=== PATIENT | male | born 1965 | race Caucasian/White ===

== ENCOUNTER 2017-04-20 19:35 | Emergency (ER) | payer MEDICAID ==
[2017-04-20 19:37] VITALS: BMI 31.0
[2017-04-20 19:42] VITALS: BP 122/84; TEMP 98.2; O2SAT 99
[2017-04-20] MEDS ORDERED: Albuterol-Ipratrop 3 mg / 0.5 (3 ml) UD IH STA (19:49)
--- NOTE | 2017-04-20 20:00 | ED PDOC ---
Addendum entered and electronically signed by Jade Arzate PA-C 04/21/17 15:04 : Addendum Addendum: 04/21/17 15:04 Dr. Brown reviewed CXR result, and agreed with treatment . He stated patient is taking ABX, and he was recommended to f/u PMD Original Note: Arrival/HPI <Papo Brown - Last Filed: 04/20/17 21:11> <James Macias - Last Filed: 04/20/17 21:37> - General Chief Complaint: Cough, Cold, Congestion Time Seen by Provider: 04/20/17 19:41 - History of Present Illness Narrative History of Present Illness (Text): 04/20/17 19:52 51 year old male presenting with 2 day history of productive cough and congestion. The cough is bringing up white phlegm. He has been experiencing rhinorrhea with clear discharge. He has been having headaches for two days as well. He has been taking DayQuil but it has not helped. He has taken advil for the headaches, which completely takes the headaches away for a period of time. He attempted to see his primary doctor today but they were away on vacation. Denies fevers, chills, nausea, vomiting, diarrhea, constipation, sob, cp, lightheadedness or dizziness. PMH: HLD Family hx: non Social hx: denies smoking, alcohol or illicit drug use Allergies: NKDA (James Macias) Associated Symptoms (Text): 04/20/17 20:36 Seen and examined with the resident. Our history and physical exam reveals a gentleman with a cough congestion URI shortness of breath and wheezing for 2 days. (Papo Brown) Past Medical History - Provider Review Nursing Documentation Reviewed: Yes - Tetanus Immunization Tetanus Immunization: Unknown - Cardiac Hx Hypertension: Yes - Pulmonary Hx Pneumonia: Yes - Musculoskeletal/Rheumatological Hx Falls: No - Psychiatric Hx Depression: No Hx Emotional Abuse: No Hx Physical Abuse: No Hx Substance Use: No - Past Surgical History Past Surgical History: No Previous - Suicidal Assessment Feels Threatened In Home Enviroment: No <James Macias - Last Filed: 04/20/17 21:37> Family/Social History - Physician Review Nursing Documentation Reviewed: Yes Family/Social History: No Known Family HX Smoking Status: Never Smoked Hx Alcohol Use: No Hx Substance Use: No Hx Substance Use Treatment: No <James Macias - Last Filed: 04/20/17 21:37> Allergies/Home Meds <Papo Brown - Last Filed: 04/20/17 21:11> <James Macias - Last Filed: 04/20/17 21:37> Allergies/Adverse Reactions: Allergies No Known Allergies Allergy (Verified 09/19/12 21:06) Home Medications: Home Meds Medication Instructions Recorded Confirmed Atorvastatin [Lipitor] 20 mg PO DAILY 10/08/12 10/08/12 Aspirin [Aspir 81] 81 mg PO DAILY 02/22/13 02/22/13 Metoprolol Tartrate 25 mg PO BID 02/22/13 02/22/13 Review of Systems - Physician Review All systems were reviewed & negative as marked: Yes - Review of Systems Constitutional: absent: Fatigue, Fevers Eyes: Normal ENT: Rhinorrhea Respiratory: Cough (productive), Sputum (white ). absent: SOB Cardiovascular: absent: Chest Pain, Edema, Syncope Gastrointestinal: absent: Abdominal Pain, Constipation, Diarrhea, Nausea, Vomiting Musculoskeletal: Normal Skin: Normal Neurological: Headache (relieved with advil). absent: Dizziness, Focal Weakness , Speech Changes Endocrine: absent: Diaphoresis Psychiatric: Normal <James Macias - Last Filed: 04/20/17 21:37> Physical Exam Vital Signs Reviewed: Yes Temperature: Afebrile Blood Pressure: Normal Pulse: Tachycardic (HR of 88 on exam) Respiratory Rate: Normal Appearance: Positive for: Well-Appearing, Non-Toxic, Comfortable Pain Distress: None Mental Status: Positive for: Alert and Oriented X 3 - Systems Exam Head: Present: Atraumatic, Normocephalic Extroacular Muscles: Present: EOMI Conjunctiva: Present: Normal Mouth: Present: Moist Mucous Membranes Pharnyx: Present: Normal. No: ERYTHEMA, EXUDATE Nose (External): Present: Atraumatic. No: Abrasion Nose (Internal): Present: Normal Inspection, Moist, Clear Mucous. No: Engorged Neck: Present: Normal Range of Motion. No: Meningeal Signs, Paraspinal Tenderness, Lymphadenopathy Respiratory/Chest: Present: Wheezes (inspiration/exspiration), Other (CTA b/l when coughing). No: Respiratory Distress, Accessory Muscle Use Cardiovascular: Present: Regular Rate and Rhythm, Normal S1, S2 Abdomen: Present: Normal Bowel Sounds. No: Tenderness, Distention, Peritoneal Signs, Guarding Neurological: Present: GCS=15 Skin: Present: Warm, Dry, Normal Color. No: Rashes Psychiatric: Present: Alert, Oriented x 3, Normal Insight, Normal Concentration <James Macias - Last Filed: 04/20/17 21:37> Vital Signs Temp Pulse Resp BP Pulse Ox 04/20/17 19:37 98.2 F 98 H 18 122/84 99 Medical Decision Making - RAD Interpretation Ramp Manager: ED Physician <Papo Brown - Last Filed: 04/20/17 21:11> <James Macias - Last Filed: 04/20/17 21:37> ED Course and Treatment: 04/20/17 20:23 Patient Seen With Resident: In agreement with resident note and more details are present in their notes. Patient was seen and evaluated with resident, came up with plan and treatment together. 04/20/17 20:46 Still wheezing after one treatment. Additional albuterol ordered 04/20/17 21:11 Symptoms further improved after second treatment. (Papo Brown) 04/20/17 20:04 Upper Respiratory Infection - CXR - no acute disease - Duoneb treatment given in ED Dispo: Home. Given prescriptions for Ventolin inhaler, Tessalon Pearls and Amoxicillin. Instructed to follow up with Primary Care Physician in the beginning of next week. (James Macias) - RAD Interpretation Radiology Orders: 04/20/17 19:48 CXR [CHEST TWO VIEWS (PA/LAT)] [RAD] Stat Chest 2 view shows no infiltrate effusion or cardiomegaly (Papo Brown) - Medication Orders Current Medication Orders: Discontinued Medications Albuterol Sulfate (Albuterol 0.5% Inhal Lennie (5 Mg/ Ml) 20 Ml) 2.5 mg IH ONCE STA Stop: 04/20/17 20:46 Last Admin: 04/20/17 20:56 Dose: 0.5 ml Albuterol/Ipratropium (Duoneb 3 Mg/0.5 Mg (3 Ml) Ud) 3 ml IH STAT STA Stop: 04/20/17 19:50 Last Admin: 04/20/17 20:01 Dose: 3 ml Amoxicillin (Amoxil 500 Mg Cap) 500 mg PO STAT STA PRN Reason: Protocol Stop: 04/20/17 21:14 Disposition/Present on Arrival - Present on Arrival Any Indicators Present on Arrival: No History of DVT/PE: No History of Uncontrolled Diabetes: No Urinary Catheter: No History of Decub. Ulcer: No - Disposition Have Diagnosis and Disposition been Completed?: Yes Disposition Time: 21:11 Patient Plan: Discharge <Papo Brown - Last Filed: 04/20/17 21:11> - Present on Arrival History of DVT/PE: No History of Uncontrolled Diabetes: No Urinary Catheter: No History of Decub. Ulcer: No History Surgical Site Infection Following: None <James Macias - Last Filed: 04/20/17 21:37> - Disposition Diagnosis: Asthmatic bronchitis Discharge Instructions (ExitCare): Acute Bronchitis (ED), Bronchospasm (ED), Wheezing (ED) Additional Instructions: Symptomatic treatment. Tylenol or Advil as directed on bottle as needed. Follow- up with your PMD. Follow up in ER as needed. Prescriptions: Amoxicillin [Amoxil 250 mg Cap] 250 mg PO TID #21 cap Benzonatate [Tessalon Perles] 100 mg PO Q8 #30 sgl Albuterol HFA [Ventolin HFA 90 mcg/actuation (8 g)] 2 puff IH [id number] #1 puff Referrals: Demarco Larkin [Primary Care Provider] - Follow up with primary Forms: [employer]iving Eg[employer] [place] (Latvian)
[2017-04-20] MEDS ORDERED: Albuterol 0.5% Inhal Sol (5 mg/ ml) 20 ml IH STA (20:45)
[2017-04-20 21:39] VITALS: PULSE 86; RESP 16
--- NOTE | 2017-04-21 08:19 | RAD ---
HISTORY: productive cough/congestion COMPARISON: Chest x-ray performed 02/22/13 TECHNIQUE: Chest PA and lateral FINDINGS: LUNGS: Patchy opacities at the right and left lower lobes may reflect atelectasis however underlying infiltrate cannot be excluded. Recommend follow-up to complete resolution. No significant pleural effusion identified. No definite pneumothorax . Please note that chest x-ray has limited sensitivity for the detection of pulmonary masses. CARDIOVASCULAR: Heart size appears within normal limits. OSSEOUS STRUCTURES: No acute osseous abnormality identified. VISUALIZED UPPER ABDOMEN: Unremarkable. OTHER FINDINGS: None. IMPRESSION: Patchy opacities at the right and left lower lobes may reflect atelectasis however underlying infiltrate cannot be excluded. Recommend follow-up to complete resolution. Study has been marked for PA review.
== END 2017-04-20 21:39 | disposition home or self-care (01) ==
LOC: ED 19:35
DX: J45.909 Unspecified asthma, uncomplicated (principal)

== ENCOUNTER 2018-10-28 20:54 | Observation (INO) | payer MEDICAID ==
[2018-10-28 21:53] LABS: HEMOGLOBIN 14.9 g/dL (14.0-18.0); MEAN CELL VOLUME 88.2 fl (80.0-105.0); MEAN CORPUSCULAR HEMOGLOBIN 29.8 pg (25.0-35.0); MEAN CORPUSCULAR HGB CONC 33.8 g/dl (31.0-37.0); MEAN PLATELET VOLUME 11.2 fl (7.0-11.0); RED CELL DISTRIBUTION WIDTH 12.9 % (11.5-14.5); WHITE BLOOD COUNT 6.9 10^3/uL (4.5-11.0)
[2018-10-28 22:04] LABS: ALB/GLOB RATIO 1.2 (1.1-1.8); ALBUMIN 4.7 g/dL (3.0-4.8); BLOOD UREA NITROGEN 20 mg/dL (7-21); CALCIUM 9.9 mg/dL (8.4-10.5); GFR NON-AFRICAN AMERICAN > 60
[2018-10-28 22:10] LABS: ALT/SGPT 29 U/L (7-56); AST/SGOT 31 U/L (17-59)
[2018-10-28 22:15] LABS: TROPONIN I < 0.01 ng/mL
[2018-10-28 22:35] LABS: INR 1.14; PARTIAL THROMBOPLASTIN TIME 36.1 Seconds (26.9-38.3); PROTHROMBIN TIME 12.7 SECONDS (9.4-12.5)
--- NOTE | 2018-10-28 22:38 | ED PDOC ---
Arrival/HPI - General Chief Complaint: Dizziness/Lightheaded Time Seen by Provider: 10/28/18 21:00 Historian: Patient - History of Present Illness Narrative History of Present Illness (Text): 10/28/18 22:33 53 year old male, whose past medical history includes hypertension and hyperlipidemia presents to the emergency department complaining of episodes of dizziness and near syncope. Patient states he was told by his PMD that he was pre diabetic. Patient denies any fevers, chills, headache, chest pain, shortness of breath, dyspnea on exertion, cough, abdominal pain, nausea, vomiting, diarrhea, back pain, neck pain, or any other complaint. Time/Duration: Prior to Arrival Symptom Onset: Gradual Symptom Course: Unchanged Activities at Onset: Light Context: Home Past Medical History - Provider Review Nursing Documentation Reviewed: Yes - Infectious Disease Hx of Infectious Diseases: None - Tetanus Immunization Tetanus Immunization: Unknown - Cardiac Hx Hypertension: Yes - Pulmonary Hx Pneumonia: Yes - Musculoskeletal/Rheumatological Hx Falls: No - Psychiatric Hx Depression: No Hx Emotional Abuse: No Hx Physical Abuse: No Hx Substance Use: No - Past Surgical History Past Surgical History: No Previous - Anesthesia Hx Anesthesia: No - Suicidal Assessment Feels Threatened In Home Enviroment: No Family/Social History - Physician Review Nursing Documentation Reviewed: Yes Family/Social History: No Known Family HX Smoking Status: Never Smoked Hx Alcohol Use: No Hx Substance Use: No Hx Substance Use Treatment: No Allergies/Home Meds Allergies/Adverse Reactions: Allergies No Known Allergies Allergy (Verified 10/28/18 21:21) Home Medications: Home Meds Medication Instructions Recorded Confirmed Atorvastatin [Lipitor] 20 mg PO DAILY 10/08/12 10/08/12 Aspirin [Aspir 81] 81 mg PO DAILY 02/22/13 02/22/13 Metoprolol Tartrate 25 mg PO BID 02/22/13 02/22/13 Review of Systems - Physician Review All systems were reviewed & negative as marked: Yes - Review of Systems Constitutional: absent: Fevers Respiratory: absent: SOB, Cough Cardiovascular: absent: Chest Pain Gastrointestinal: absent: Abdominal Pain, Diarrhea, Nausea, Vomiting Musculoskeletal: absent: Back Pain, Neck Pain Neurological: Dizziness. absent: Headache Physical Exam Vital Signs Reviewed: Yes Vital Signs Temp Pulse Resp BP Pulse Ox 10/28/18 21:22 98.2 F 72 18 138/89 98 Temperature: Afebrile Blood Pressure: Normal Pulse: Regular Respiratory Rate: Normal Appearance: Positive for: Well-Appearing, Non-Toxic, Comfortable Pain Distress: None Mental Status: Positive for: Alert and Oriented X 3 - Systems Exam Head: Present: Atraumatic, Normocephalic Pupils: Present: PERRL Extroacular Muscles: Present: EOMI Conjunctiva: Present: Normal Mouth: Present: Moist Mucous Membranes Neck: Present: Normal Range of Motion Respiratory/Chest: Present: Clear to Auscultation, Good Air Exchange. No: Respiratory Distress, Accessory Muscle Use Cardiovascular: Present: Regular Rate and Rhythm, Normal S1, S2. No: Murmurs Abdomen: No: Tenderness, Distention, Peritoneal Signs Back: Present: Normal Inspection Upper Extremity: Present: Normal Inspection. No: Cyanosis, Edema Lower Extremity: Present: Normal Inspection. No: Edema Neurological: Present: GCS=15, CN II-XII Intact, Speech Normal Skin: Present: Warm, Dry, Normal Color. No: Rashes Psychiatric: Present: Alert, Oriented x 3, Normal Insight, Normal Concentration Medical Decision Making ED Course and Treatment: 10/28/18 22:39 Impression: 53 year old male who presents to the emergency department complaining of dizziness and near syncope. Plan: -- Head CT w/o contrast -- EKG -- Labs -- Chest X-ray -- Reassess and disposition Prior Visits: Notes and results from previous visits were reviewed. Progress Notes: 10/28/18 22:41 EKG reviewed by m, shows: NSR 69 bpm, with LVH non specific ST/T wave changes 10/28/18 23:[address] w/o contrast reviewed by radiologist, shows: IMPRESSION: 1. There is mucosal thickening of some right ethmoid air cells. 2. No CT evidence for acute intracranial abnormality. Chest X-ray IMPRESSION: No acute processes. 10/28/18 23:47 Case discussed with medical sonographer and house doctor, Dr. Otero, accepted in hospitalist service. - Lab Interpretations Lab Results: Troponin I < 0.01 ng/mL 10/28/18 21:44 Total Bilirubin 0.4 mg/dL (0.2-1.3) 10/28/18 21:44 AST 31 U/L (17-59) 10/28/18 21:44 ALT 29 U/L (7-56) 10/28/18 21:44 Alkaline Phosphatase 63 U/L (38-126) 10/28/18 21:44 Total Protein 8.5 g/dL (5.8-8.3) H 10/28/18 21:44 Albumin 4.7 g/dL (3.0-4.8) 10/28/18 21:44 Globulin 3.8 gm/dL 10/28/18 21:44 Albumin/Globulin Ratio 1.2 (1.1-1.8) 10/28/18 21:44 I have reviewed the lab results: Yes - RAD Interpretation Radiology Orders: 10/28/18 21:23 HEAD W/O CONTRAST [CT] Stat 10/28/18 21:24 CHEST PORTABLE [RAD] Stat Health Informatics Specialist: Radiologist - EKG Interpretation Interpreted by ED Physician: Yes Type: 12 lead EKG - Scribe Statement The provider has reviewed the documentation as recorded by the Talaibkeesha Chapin Provider Scribe Attestation: All medical record entries made by the Scribe were at my direction and personally dictated by me. I have reviewed the chart and agree that the record accurately reflects my personal performance of the history, physical exam, medical decision making, and the department course for this patient. I have also personally directed, reviewed, and agree with the discharge instructions and disposition. Disposition/Present on Arrival - Present on Arrival Any Indicators Present on Arrival: No History of DVT/PE: No History of Uncontrolled Diabetes: No Urinary Catheter: No History of Decub. Ulcer: No History Surgical Site Infection Following: None - Disposition Have Diagnosis and Disposition been Completed?: Yes Diagnosis: Near syncope Disposition: HOSPITALIZED Disposition Time: 23:44 Patient Problems: Current Active Problems Problem Status Onset Near syncope Acute Condition: STABLE Forms: [employer] (Serbian)
--- NOTE | 2018-10-29 01:08 | CP.PCM.HP ---
<Kareem Tariq - Last Filed: 10/29/18 01:29> History of Present Illness - History of Present Illness History of Present Illness: Kareem Tariq DO, PGY-1 Hospitalist Admission History and Physical for Dr. Otero CC: dizziness, near-syncope HPI: Patient is a 53 year old male with PMH of HTN, HLD, GERD, and unspecified arrhythmia (s/p ablation, likely AFib) who presented to ED with complaint of episodes of periodic dizziness. He states he has had these episodes for the past 3 days. He states the episodes last for about 10 minutes and sitting or lying down helps improve the dizziness. He states it feels as if the room is spinning around during these episodes. He has no additional complaints and denies fever/chills, CP, SOB, palpitations, syncope, peripheral numbness/tingling, MARTINEZ, changes in vision, or new urinary complaints. PMD: Dr. Michel [place] in [place] Past Medical History: HTN, HLD, GERD, and unspecified arrhythmia (s/p ablation, likely AFib) Past Surgical History: Cardiac ablation for arrhythmia, likely AFib Allergies: NKA Home medications: Lopressor 25 mg daily, Lipitor 20 mg daily, ASA 81 mg daily, Ventolin PRN q6h Family History: father had CAD Social History: denies current or prior tobacco, alcohol, or illicit drug use Pharmacy: [id number] Present on Admission - Present on Admission Any Indicators Present on Admission: No History of DVT/PE: No History of Uncontrolled Diabetes: No Urinary Catheter: No Decubitus Ulcer Present: No Review of Systems - Constitutional Constitutional: absent: Chills, Fever - EENT Eyes: absent: Blurred Vision, Change in Vision - Cardiovascular Cardiovascular: absent: Chest Pain, Chest Pain at Rest, Dyspnea, Dyspnea on Exertion, Orthopnea, Palpitations, Paroxysmal Nocturnal Dyspnea - Respiratory Respiratory: absent: Cough, Dyspnea - Gastrointestinal Gastrointestinal: absent: Abdominal Pain, Nausea, Vomiting - Genitourinary Genitourinary: absent: Change in Urinary Stream, Difficulty Urinating - Musculoskeletal Musculoskeletal: absent: Numbness, Tingling - Neurological Neurological: Disequilibrium, Dizziness. absent: Numbness, Syncope, Tremor, Weakness Past Patient History - Infectious Disease Hx of Infectious Diseases: None - Tetanus Immunizations Tetanus Immunization: Unknown - Past Social History Smoking Status: Never Smoked - CARDIAC Hx Hypertension: Yes - PULMONARY Hx Pneumonia: Yes - MUSCULOSKELETAL/RHEUMATOLOGICAL Hx Falls: No - PSYCHIATRIC Hx Depression: No Hx Emotional Abuse: No Hx Physical Abuse: No Hx Substance Use: No - ANESTHESIA Hx Anesthesia: No Meds Allergies/Adverse Reactions: Allergies Allergy/AdvReac Type Severity Reaction Status Date / Time No Known Allergies Allergy Verified 10/28/18 21:21 Physical Exam - Constitutional Appears: Non-toxic, No Acute Distress - Head Exam Head Exam: ATRAUMATIC, NORMOCEPHALIC - Eye Exam Eye Exam: EOMI, PERRL - ENT Exam ENT Exam: Mucous Membranes Moist - Neck Exam Neck exam: Positive for: Full Rom, Normal Inspection - Respiratory Exam Respiratory Exam: Clear to Auscultation Bilateral, NORMAL BREATHING PATTERN. absent: Accessory Muscle Use, Rales, Rhonchi, Wheezes, Respiratory Distress - Cardiovascular Exam Cardiovascular Exam: REGULAR RHYTHM, RRR, +S1, +S2. absent: Diastolic murmur, Gallop, Rubs, Systolic Murmur - GI/Abdominal Exam GI & Abdominal Exam: Normal Bowel Sounds, Soft. absent: Guarding, Rebound, Tenderness - Extremities Exam Extremities exam: Positive for: full ROM, normal inspection. Negative for: pedal edema - Back Exam Back exam: NORMAL INSPECTION - Neurological Exam Neurological exam: Alert, CN II-XII Intact, Normal Gait, Oriented x3 Additional comments: no nystagmus - Psychiatric Exam Psychiatric exam: Normal Affect, Normal Mood - Skin Skin Exam: Dry, Intact, Warm Results - Vital Signs Recent Vital Signs: Last Vital Signs Temp 98.1 F 10/29/18 00:37 Pulse 77 10/29/18 00:37 Resp 18 10/29/18 00:37 BP 130/78 10/29/18 00:37 Pulse Ox 98 10/29/18 00:37 - Labs Result Diagrams: 10/28/18 21:44 10/28/18 21:44 Labs: Laboratory Results - last 24 hr 10/28/18 10/28/18 10/28/18 21:44 21:44 22:20 WBC 6.9 RBC 5.00 Hgb 14.9 Hct 44.1 MCV 88.2 MCH 29.8 MCHC 33.8 RDW 12.9 Plt Count 210 MPV 11.2 H PT 12.7 H INR 1.14 APTT 36.1 Sodium 138 Potassium 4.2 Chloride 104 Carbon Dioxide 23 Anion Gap 15 BUN 20 Creatinine 0.8 Est GFR ( Amer) > 60 Est GFR (Non-Af Amer) > 60 Random Glucose 94 Calcium 9.9 Total Bilirubin 0.4 AST 31 ALT 29 Alkaline Phosphatase 63 Lactate Dehydrogenase 506 Total Creatine Kinase 227 Troponin I < 0.01 Total Protein 8.5 H Albumin 4.7 Globulin 3.8 Albumin/Globulin Ratio 1.2 Assessment & Plan - Assessment and Plan (Free Text) Assessment: 53 yo M with PMH of HTN, HLD, GERD, and unspecified arrhythmia (s/p ablation, likely AFib) presented to ED with complaints of intermittent episodes of dizziness admitted for pre-syncope w/u. Plan: Dizziness/Pre-syncope May be 2/[address] vasovag[address] vs [address] head showed mucosal thickening of some R ethmoid air cells B/l carotid US, orthostatic VS, TTE ordered Cardiology, neurology consults placed, all recs appreciated HTN Continue home lopressor with holding parameters HLD Continue home lipitor GERD Continue home protonix DVT/GI PPX: SCD/home protonix Full Code HHD Monitor on remote telemetry Patient seen, examined with, and plan discussed with my attending Dr. Shanna Tariq D.O. IM Resident PGY-1 <Raul Otero - Last Filed: 10/29/18 06:08> Results - Vital Signs Recent Vital Signs: Last Vital Signs Temp 98 F 10/29/18 00:46 Pulse 76 10/29/18 02:00 Resp 18 10/29/18 00:46 BP 135/89 10/29/18 00:46 Pulse Ox 96 10/29/18 00:46 - Labs Result Diagrams: 10/28/18 21:44 10/28/18 21:44 Labs: Laboratory Results - last 24 hr 10/28/18 10/28/18 10/28/18 21:44 21:44 22:20 WBC 6.9 RBC 5.00 Hgb 14.9 Hct 44.1 MCV 88.2 MCH 29.8 MCHC 33.8 RDW 12.9 Plt Count 210 MPV 11.2 H PT 12.7 H INR 1.14 APTT 36.1 Sodium 138 Potassium 4.2 Chloride 104 Carbon Dioxide 23 Anion Gap 15 BUN 20 Creatinine 0.8 Est GFR ( Amer) > 60 Est GFR (Non-Af Amer) > 60 Random Glucose 94 Calcium 9.9 Total Bilirubin 0.4 AST 31 ALT 29 Alkaline Phosphatase 63 Lactate Dehydrogenase 506 Total Creatine Kinase 227 Troponin I < 0.01 Total Protein 8.5 H Albumin 4.7 Globulin 3.8 Albumin/Globulin Ratio 1.2 Attending/Attestation - Attestation I have personally seen and examined this patient.: Yes I have fully participated in the care of the patient.: Yes I have reviewed all pertinent clinical information: Yes Notes (Text): 10/29/18 06:08 Patient was seen when he was in bed # [id number]. Medical record was reviewed. Agree with history , physical examination, assessment and plan.
[2018-10-29 01:17] VITALS: BMI 27.3
[2018-10-29 06:14] VITALS: O2SAT 97
[2018-10-29 07:18] LABS: BASO # 0.02 K/mm3 (0.0-2.0); BASO % 0.3 % (0.0-3.0); EOS # 0.1 (0.0-0.7); EOS % 2.4 % (1.5-5.0); HEMOGLOBIN 14.7 g/dL (14.0-18.0); LYMPH # 3.2 (1.2-3.4); LYMPH % 54.2 % (22.0-35.0); MEAN CELL VOLUME 88.8 fl (80.0-105.0); MEAN CORPUSCULAR HEMOGLOBIN 29.4 pg (25.0-35.0); MEAN CORPUSCULAR HGB CONC 33.1 g/dl (31.0-37.0); MEAN PLATELET VOLUME 11.6 fl (7.0-11.0); MONO # 0.5 (0.1-0.6); MONO % 7.9 % (1.0-6.0); WHITE BLOOD COUNT 5.9 10^3/uL (4.5-11.0)
[2018-10-29 07:33] LABS: ALB/GLOB RATIO 1.3 (1.1-1.8); ALBUMIN 4.3 g/dL (3.0-4.8); ALT/SGPT 26 U/L (7-56); AST/SGOT 31 U/L (17-59); BLOOD UREA NITROGEN 19 mg/dL (7-21); CALCIUM 9.6 mg/dL (8.4-10.5); GFR NON-AFRICAN AMERICAN > 60; HDL CHOLESTEROL 28 mg/dL (29-60)
[2018-10-29 07:43] LABS: LDL CHOLESTEROL 86 mg/dL (0-129)
--- NOTE | 2018-10-29 08:36 | CT ---
Date of service: 10/28/2018 PROCEDURE: CT HEAD WITHOUT CONTRAST. HISTORY: dizzy/near syncope COMPARISON: None available. TECHNIQUE: Axial computed tomography images were obtained through the head/brain without intravenous contrast. Radiation dose: Total exam DLP = 1217.56 mGy-cm. This CT exam was performed using one or more of the following dose reduction techniques: Automated exposure control, adjustment of the mA and/or kV according to patient size, and/or use of iterative reconstruction technique. FINDINGS: HEMORRHAGE: No intracranial hemorrhage. BRAIN: Shin-white matter differentiation is preserved. There is no mass, mass effect or abnormal extra-axial fluid collection. There is no territorial infarction. The midline sagittal structures are normal. VENTRICLES: There is mild age advanced global parenchymal volume loss and proportionate enlargement of the ventricles and cortical sulci. CALVARIUM: There is no calvarial fracture or extracranial soft tissue swelling. PARANASAL SINUSES: There is moderate scattered mucosal thickening in the right ethmoid air cells. The remaining included paranasal sinuses are predominantly clear. MASTOID AIR CELLS: Predominantly clear. OTHER FINDINGS: None. IMPRESSION: No acute intracranial abnormality. A preliminary report was provided by [facility].
--- NOTE | 2018-10-29 09:47 | RAD ---
Date of service: 10/28/2018 HISTORY: Dizziness COMPARISON: 04/20/2017. FINDINGS: LUNGS: The lungs are well inflated and clear. PLEURA: No pleural effusions or pneumothorax. CARDIOVASCULAR: The heart is normal in size. No aortic atherosclerotic calcifications present. OSSEOUS STRUCTURES: Within normal limits for the patient's age. VISUALIZED UPPER ABDOMEN: Normal. OTHER FINDINGS: None. IMPRESSION: No active pulmonary disease.
[2018-10-29] MEDS ORDERED: Cholecalciferol 1,000 INTLU TAB PO SCH (10:00)
[2018-10-29] MEDS ORDERED: diltiaZEM 120 mg/24 Hours CD Cap PO SCH (10:00)
--- NOTE | 2018-10-29 10:03 | CON ---
DATE OF CONSULTATION: 10/29/2018 REQUESTING PHYSICIAN: Dr. Modi. REASON FOR CONSULTATION: Near syncope. HISTORY: This is a 53-year-old man with a history of hypertension, hyperlipidemia, and glucose tolerance, who had a near syncopal event yesterday. He states that he had multiple episodes of dizziness throughout the day and felt that he were to lose consciousness. He had no inderjit, inderjit syncope. This has happened several times in the past, but he has no evidence of syncope. He is unaware of any palpitations at that time. Denied any chest pain or dyspnea. He feels that his symptoms may have been precipitated by eating tainted food. PAST MEDICAL HISTORY: His past history is notable for the problems mentioned above. He states that he underwent a catheter ablation therapy at [facility] sometime in the past, the full details of this were unclear. MEDICATIONS: His medications at home include aspirin, metoprolol 25 mg b.i.d., and Lipitor 20 mg daily. ALLERGIES: NONE. SOCIAL HISTORY: Does not smoke or drink. He works as a citrus fruit packer. FAMILY HISTORY: Unremarkable for premature heart disease. REVIEW OF SYSTEMS: Ten-point review of systems was unremarkable. PHYSICAL EXAMINATION: GENERAL: He is a middle-aged man, appears comfortable at the present time. VITAL SIGNS: Blood pressure is 120/76 with a pulse of 80 and sinus, respirations are 16. He is afebrile. HEENT: Normocephalic, atraumatic. NECK: Supple. No JVD noted. CHEST: Few scattered rhonchi heard. HEART: PMI normal position. No pathological murmurs or gallops are noted. ABDOMEN: Soft and nontender, with normoactive bowel sounds. EXTREMITIES: No edema. DIAGNOSTIC DATA: White count 6.9, hemoglobin and hematocrit of 14.9 and 44.1, with a platelet count of 210,000. PT/PTT normal. Potassium 4.2, BUN and creatinine are 20 and 0.8. Initial troponin is negative. Chest x-ray reveals normal cardiac silhouette with clear lung youngblood. Electrocardiogram reveals sinus rhythm with nonspecific ST-T abnormalities. IMPRESSION: 1. Near syncope, possible vasovagal event. No clear cardiac dysfunction noted at the present time. No documented dysrhythmias thus far, although he does have a history of prior ablation therapy, the exact details of which is unclear. 2. History of hypertension and hyperlipidemia. 3. Rest of problems as noted. RECOMMENDATIONS: Telemetry observation should continue for today. An echocardiogram is pending. If he has recurrent symptoms, repeat orthostatic vital signs can be obtained. Initial evaluation was unremarkable. If he has recurrent episodes, a 30-day event monitor or an implantable loop recorder can be planned given his prior history of dysrhythmias. Followup with his primary tobacco curer upon discharge would be appropriate. Thank you for this consultation. We will be happy to follow up through his hospital course as needed. Calvin Winters MD MTDD
[2018-10-29 12:01] VITALS: BP 126/81; RESP 18; TEMP 97.9
--- NOTE | 2018-10-29 15:08 | CP.PCM.CON ---
History of Present Illness - History of Present Illness History of Present Illness: Masoud Reeves PGY2 Neurology Consult Note for Dr. Welsh 53 year old male with PMH of HTN, HLD, GERD, and unspecified arrhythmia (s/p ablation, likely AFib) who presented with complaint of episodes of periodic lightheadedness and feeling weak. Patient states he has been eating less since his doctor told him he may have diabetes. He states when he feels lightheaded he drinks some sugar and feels better. He states this has happened twice in the last week. He denies any LOC or any falls. He has no additional complaints and denies fever/chills, CP, SOB, palpitations, syncope, peripheral numbness/tingling, MARTINEZ, changes in vision, or new urinary complaints. PMD: Dr. Michel [place] in [place] Past Medical History: HTN, HLD, GERD, and unspecified arrhythmia (s/p ablation, likely AFib) Past Surgical History: Cardiac ablation for arrhythmia, likely AFib Allergies: NKA Home medications: Lopressor 25 mg daily, Lipitor 20 mg daily, ASA 81 mg daily, Ventolin PRN q6h Family History: father had CAD Social History: denies current or prior tobacco, alcohol, or illicit drug use Pharmacy: [facility] Review of Systems - EENT Eyes: absent: Blind Spots, Blurred Vision, Change in Vision - Cardiovascular Cardiovascular: absent: Chest Pain, Dyspnea - Respiratory Respiratory: absent: Dyspnea - Gastrointestinal Gastrointestinal: absent: Abdominal Pain, Nausea, Vomiting - Musculoskeletal Musculoskeletal: absent: Numbness, Tingling - Neurological Neurological: Weakness. absent: Confusion, Disequilibrium, Focal Weakness, Headaches, Paresthesias, Vertigo Past Patient History - Infectious Disease Hx of Infectious Diseases: None - Tetanus Immunizations Tetanus Immunization: Unknown - Past Social History Smoking Status: Never Smoked - CARDIAC Hx Hypertension: Yes - PULMONARY Hx Pneumonia: Yes - NEUROLOGICAL Hx Neurological Disorder: Yes Hx Dizziness: Yes - HEENT Hx HEENT Problems: No - RENAL Hx Chronic Kidney Disease: No - ENDOCRINE/METABOLIC Hx Endocrine Disorders: Yes Hx Diabetes Mellitus Type 2: Yes (pre- DM) - HEMATOLOGICAL/ONCOLOGICAL Hx Blood Disorders: No - INTEGUMENTARY Hx Dermatological Problems: No - MUSCULOSKELETAL/RHEUMATOLOGICAL Hx Falls: No - GASTROINTESTINAL Hx Gastrointestinal Disorders: No - GENITOURINARY/GYNECOLOGICAL Hx Genitourinary Disorders: No - PSYCHIATRIC Hx Depression: No Hx Emotional Abuse: No Hx Physical Abuse: No Hx Substance Use: No - SURGICAL HISTORY Hx Surgeries: Yes (ablation) - ANESTHESIA Hx Anesthesia: No Meds Allergies/Adverse Reactions: Allergies Allergy/AdvReac Type Severity Reaction Status Date / Time No Known Allergies Allergy Verified 10/28/18 21:21 - Medications Medications: Current Medications Aspirin (Ecotrin) 81 mg PO DAILY [facility] Last Admin: 10/29/18 10:44 Dose: 81 mg Atorvastatin Calcium (Lipitor) 20 mg PO DAILY [facility] Last Admin: 10/29/18 10:45 Dose: 20 mg Cholecalciferol (Vitamin D) 1,000 intlu PO DAILY [facility] Last Admin: 10/29/18 10:45 Dose: 1,000 intlu Metoprolol Tartrate (Lopressor) 25 mg PO DAILY [facility] Last Admin: 10/29/18 10:45 Dose: Not Given Pantoprazole Sodium (Protonix Ec Tab) 40 mg PO [facility] Physical Exam - Constitutional Appears: Non-toxic, No Acute Distress - Head Exam Head Exam: ATRAUMATIC, NORMAL INSPECTION, NORMOCEPHALIC - Eye Exam Eye Exam: EOMI, Normal appearance - ENT Exam ENT Exam: Mucous Membranes Moist - Neck Exam Neck exam: Positive for: Normal Inspection - Respiratory Exam Respiratory Exam: Clear to Auscultation Bilateral, NORMAL BREATHING PATTERN - Cardiovascular Exam Cardiovascular Exam: REGULAR RHYTHM, +S1, +S2 - GI/Abdominal Exam GI & Abdominal Exam: Normal Bowel Sounds, Soft - Extremities Exam Extremities exam: Positive for: pedal pulses present. Negative for: pedal edema, tenderness - Neurological Exam Neurological exam: Alert, CN II-XII Intact, Normal Gait, Oriented x3, Reflexes Normal Additional comments: No ataxia, speech clear, no gait instability, cerebellar function in tact, 5/5 Upper and lower extremity B/lL with sensation in tact Results - Vital Signs Recent Vital Signs: Last Vital Signs Temp 97.9 F 10/29/18 12:00 Pulse 74 10/29/18 12:00 Resp 18 10/29/18 12:00 BP 126/81 10/29/18 12:00 Pulse Ox 97 10/29/18 06:00 - Labs Result Diagrams: 10/29/18 06:30 10/29/18 06:30 Labs: Laboratory Results - last 24 hr 10/28/18 10/28/18 10/28/18 21:44 21:44 22:20 WBC 6.9 RBC 5.00 Hgb 14.9 Hct 44.1 MCV 88.2 MCH 29.8 MCHC 33.8 RDW 12.9 Plt Count 210 MPV 11.2 H Neut % (Auto) Lymph % (Auto) [place] % (Auto) Eos % (Auto) Baso % (Auto) Lymph # (Auto) [place] # (Auto) Eos # (Auto) Baso # (Auto) Absolute Neuts (auto) PT 12.7 H INR 1.14 APTT 36.1 Sodium 138 Potassium 4.2 Chloride 104 Carbon Dioxide 23 Anion Gap 15 BUN 20 Creatinine 0.8 Est GFR ( Amer) > 60 Est GFR (Non-Af Amer) > 60 Random Glucose 94 Hemoglobin A1c Calcium 9.9 Phosphorus Magnesium Total Bilirubin 0.4 AST 31 ALT 29 Alkaline Phosphatase 63 Lactate Dehydrogenase 506 Total Creatine Kinase 227 Troponin I < 0.01 Total Protein 8.5 H Albumin 4.7 Globulin 3.8 Albumin/Globulin Ratio 1.2 Triglycerides Cholesterol LDL Cholesterol Direct HDL Cholesterol TSH 3rd Generation 10/29/18 10/29/18 10/29/18 06:30 06:30 06:30 WBC 5.9 RBC 5.00 Hgb 14.7 Hct 44.4 MCV 88.8 MCH 29.4 MCHC 33.1 RDW 13.0 Plt Count 183 MPV 11.6 H Neut % (Auto) 35.2 L Lymph % (Auto) 54.2 H [place] % (Auto) 7.9 H Eos % (Auto) 2.4 Baso % (Auto) 0.3 Lymph # (Auto) 3.2 [place] # (Auto) 0.5 Eos # (Auto) 0.1 Baso # (Auto) 0.02 Absolute Neuts (auto) 2.08 PT INR APTT Sodium 141 Potassium 3.6 Chloride 105 Carbon Dioxide 26 Anion Gap 13 BUN 19 Creatinine 0.9 Est GFR ( Amer) > 60 Est GFR (Non-Af Amer) > 60 Random Glucose 113 H Hemoglobin A1c 6.1 Calcium 9.6 Phosphorus 3.5 Magnesium 2.2 Total Bilirubin 0.4 AST 31 ALT 26 Alkaline Phosphatase 61 Lactate Dehydrogenase Total Creatine Kinase Troponin I Total Protein 7.6 Albumin 4.3 Globulin 3.4 Albumin/Globulin Ratio 1.3 Triglycerides 177 H Cholesterol 146 LDL Cholesterol Direct 86 HDL Cholesterol 28 L TSH 3rd Generation 10/29/18 10/29/18 06:30 08:00 WBC RBC Hgb Hct MCV MCH MCHC RDW Plt Count MPV Neut % (Auto) Lymph % (Auto) [place] % (Auto) Eos % (Auto) Baso % (Auto) Lymph # (Auto) [place] # (Auto) Eos # (Auto) Baso # (Auto) Absolute Neuts (auto) PT INR APTT Sodium Potassium Chloride Carbon Dioxide Anion Gap BUN Creatinine Est GFR ( Amer) Est GFR (Non-Af Amer) Random Glucose Hemoglobin A1c Calcium Phosphorus Magnesium Total Bilirubin AST ALT Alkaline Phosphatase Lactate Dehydrogenase Total Creatine Kinase Troponin I < 0.01 Total Protein Albumin Globulin Albumin/Globulin Ratio Triglycerides Cholesterol LDL Cholesterol Direct HDL Cholesterol TSH 3rd Generation 1.05 Assessment & Plan - Assessment and Plan (Free Text) Assessment: 53 yo M with PMH of HTN, HLD, GERD, and unspecified arrhythmia (s/p ablation, likely AFib) presented to ED with complaints of weakness and lightheadedness. Plan: Lightheadedness/ Weakness -resolved, no focal weakness, ataxia -CT head showed mucosal thickening of some R ethmoid air cells -orthostatics normal -echo pending read -cardiology following -carotid duplex pending read Will sign off at this point, thanks
[2018-10-29 15:46] VITALS: PULSE 95
--- NOTE | 2018-10-29 15:58 | CP.PCM.DIS ---
<Collins Roland - Last Filed: 10/29/18 15:53> Provider - Provider Date of Admission: 10/28/18 23:42 Attending physician: Sofie Sampson DO Primary care physician: ADRIANA PRIMARY CARE PROVIDER Consults: 10/29/18 00:27 Cardiology Consult Routine Comment: Consulting Provider: Calvin Winters Consulting Physician: Calvin Winters Reason for Consult: near-syncope Neurology Consult Routine Comment: Consulting Provider: Umu Rodriguez Consulting Physician: Umu Rodriguez Reason for Consult: near-syncope Time Spent in preparation of Discharge (in minutes): 35 Hospital Course - Lab Results Lab Results: Most Recent Lab Values WBC 5.9 10^3/uL (4.5-11.0) 10/29/18 06:30 RBC 5.00 10^6/uL (3.5-6.1) 10/29/18 06:30 Hgb 14.7 g/dL (14.0-18.0) 10/29/18 06:30 Hct 44.4 % (42.0-52.0) 10/29/18 06:30 MCV 88.8 fl (80.0-105.0) 10/29/18 06:30 MCH 29.4 pg (25.0-35.0) 10/29/18 06:30 MCHC 33.1 g/dl (31.0-37.0) 10/29/18 06:30 RDW 13.0 % (11.5-14.5) 10/29/18 06:30 Plt Count 183 10^3/uL (120.0-450.0) 10/29/18 06:30 MPV 11.6 fl (7.0-11.0) H 10/29/18 06:30 Neut % (Auto) 35.2 % (50.0-68.0) L 10/29/18 06:30 Lymph % (Auto) 54.2 % (22.0-35.0) H 10/29/18 06:30 [place] % (Auto) 7.9 % (1.0-6.0) H 10/29/18 06:30 Eos % (Auto) 2.4 % (1.5-5.0) 10/29/18 06:30 Baso % (Auto) 0.3 % (0.0-3.0) 10/29/18 06:30 Lymph # (Auto) 3.2 (1.2-3.4) 10/29/18 06:30 [place] # (Auto) 0.5 (0.1-0.6) 10/29/18 06:30 Eos # (Auto) 0.1 (0.0-0.7) 10/29/18 06:30 Baso # (Auto) 0.02 K/mm3 (0.0-2.0) 10/29/18 06:30 Absolute Neuts (auto) 2.08 (1.4-6.5) 10/29/18 06:30 PT 12.7 SECONDS (9.4-12.5) H 10/28/18 22:20 INR 1.14 10/28/18 22:20 APTT 36.1 Seconds (26.9-38.3) 10/28/18 22:20 Sodium 141 mmol/L (132-148) 10/29/18 06:30 Potassium 3.6 mmol/L (3.6-5.0) 10/29/18 06:30 Chloride 105 mmol/L (98-107) 10/29/18 06:30 Carbon Dioxide 26 mmol/L (21-33) 10/29/18 06:30 Anion Gap 13 (10-20) 10/29/18 06:30 BUN 19 mg/dL (7-21) 10/29/18 06:30 Creatinine 0.9 mg/dl (0.8-1.5) 10/29/18 06:30 Est GFR ( Amer) > 60 10/29/18 06:30 Est GFR (Non-Af Amer) > 60 10/29/18 06:30 Random Glucose 113 mg/dL (70-110) H 10/29/18 06:30 Hemoglobin A1c 6.1 % (4.2-6.5) 10/29/18 06:30 Calcium 9.6 mg/dL (8.4-10.5) 10/29/18 06:30 Phosphorus 3.5 mg/dL (2.5-4.5) 10/29/18 06:30 Magnesium 2.2 mg/dL (1.7-2.2) 10/29/18 06:30 Total Bilirubin 0.4 mg/dL (0.2-1.3) 10/29/18 06:30 AST 31 U/L (17-59) 10/29/18 06:30 ALT 26 U/L (7-56) 10/29/18 06:30 Alkaline Phosphatase 61 U/L (38-126) 10/29/18 06:30 Lactate Dehydrogenase 506 U/L (333-699) 10/28/18 21:44 Total Creatine Kinase 227 U/L (35-230) 10/28/18 21:44 Troponin I < 0.01 ng/mL 10/29/18 08:00 Total Protein 7.6 g/dL (5.8-8.3) 10/29/18 06:30 Albumin 4.3 g/dL (3.0-4.8) 10/29/18 06:30 Globulin 3.4 gm/dL 10/29/18 06:30 Albumin/Globulin Ratio 1.3 (1.1-1.8) 10/29/18 06:30 Triglycerides 177 mg/dL (35-160) H 10/29/18 06:30 Cholesterol 146 mg/dL (130-200) 10/29/18 06:30 LDL Cholesterol Direct 86 mg/dL (0-129) 10/29/18 06:30 HDL Cholesterol 28 mg/dL (29-60) L 10/29/18 06:30 TSH 3rd Generation 1.05 mIU/mL (0.46-4.68) 10/29/18 06:30 - Hospital Course Hospital Course: Upon admission, 53 year old male with PMH of HTN, HLD, GERD, and unspecified arrhythmia (s/p ablation, likely AFib) who presented to ED with complaint of episodes of periodic dizziness. He states he has had these episodes for the past 3 days. He states the episodes last for about 10 minutes and sitting or lying d own helps improve the dizziness. He states it feels as if the room is spinning around during these episodes. He has no additional complaints and denies fever/chills, CP, SOB, palpitations, syncope, peripheral numbness/tingling, MARTINEZ, changes in vision, or new urinary complaints. During hospital course, vitals were stable, orthostatics were unremarkable and electrolytes were within normal range. Patient had carotid ultrasound done and echo performed with results pending. Cardiology and neurology were consulted. Patient did not have any repeat episodes of dizziness or presyncope and was asymptomatic throughout hospital course. His home medications were resumed including aspirin, lipitor, lopressor 25mg and started on protonix for GI prophylaxis. Patient states he has work obligations tomorrow and has to leave hospital today. Risks of leaving AMA were explained to patient including improved prognosis and overall symptoms if patient stayed and worsening of known/unknown symptoms, permanent disability and possible if patient left. Patient verbalized understanding of leaving AMA and wished to leave. Patient has good mental capacity and denied homocidal/suicidal ideations. Patient instructed follow up with PMD as soon as possible. Discharge Exam - Additional Findings Additional findings: - Constitutional Appears: Non-toxic, No Acute Distress - Head Exam Head Exam: ATRAUMATIC, NORMOCEPHALIC - Eye Exam Eye Exam: EOMI, PERRL - ENT Exam ENT Exam: Mucous Membranes Moist - Neck Exam Neck exam: Positive for: Full Rom, Normal Inspection - Respiratory Exam Respiratory Exam: Clear to Auscultation Bilateral, NORMAL BREATHING PATTERN. absent: Accessory Muscle Use, Rales, Rhonchi, Wheezes, Respiratory Distress - Cardiovascular Exam Cardiovascular Exam: REGULAR RHYTHM +S1, +S2. absent: Diastolic murmur, Gallop, Rubs, Systolic Murmur - GI/Abdominal Exam GI & Abdominal Exam: Normal Bowel Sounds, Soft. absent: Guarding, Rebound, Tenderness - Extremities Exam Extremities exam: Positive for: full ROM, normal inspection. DP +2 B/L Negative for: pedal edema - Back Exam Back exam: NORMAL INSPECTION - Neurological Exam Neurological exam: Alert, CN II-XII Intact, Normal Gait, Oriented x3 Additional comments: no nystagmus, no focal motor/sensory deficits appreciated - Skin Skin Exam: Dry, Intact, Warm Discharge Plan - Follow Up Plan Condition: STABLE Disposition: AGAINST MEDICAL ADVICE Referrals: PCP,NO [Primary Care Provider] - <Sofie Sampson - Last Filed: 10/30/18 09:02> Provider - Provider Date of Admission: 10/28/18 23:42 Attending physician: Sofie Sampson DO Primary care physician: ADRIANA PRIMARY CARE PROVIDER Consults: 10/29/18 00:27 Cardiology Consult Routine Comment: Consulting Provider: Calvin Winters Consulting Physician: Calvin Winters Reason for Consult: near-syncope Neurology Consult Routine Comment: Consulting Provider: Umu Rodriguez Consulting Physician: Umu Rodriguez Reason for Consult: near-syncope Hospital Course - Lab Results Lab Results: Most Recent Lab Values WBC 5.9 10^3/uL (4.5-11.0) 10/29/18 06:30 RBC 5.00 10^6/uL (3.5-6.1) 10/29/18 06:30 Hgb 14.7 g/dL (14.0-18.0) 10/29/18 06:30 Hct 44.4 % (42.0-52.0) 10/29/18 06:30 MCV 88.8 fl (80.0-105.0) 10/29/18 06:30 MCH 29.4 pg (25.0-35.0) 10/29/18 06:30 MCHC 33.1 g/dl (31.0-37.0) 10/29/18 06:30 RDW 13.0 % (11.5-14.5) 10/29/18 06:30 Plt Count 183 10^3/uL (120.0-450.0) 10/29/18 06:30 MPV 11.6 fl (7.0-11.0) H 10/29/18 06:30 Neut % (Auto) 35.2 % (50.0-68.0) L 10/29/18 06:30 Lymph % (Auto) 54.2 % (22.0-35.0) H 10/29/18 06:30 [place] % (Auto) 7.9 % (1.0-6.0) H 10/29/18 06:30 Eos % (Auto) 2.4 % (1.5-5.0) 10/29/18 06:30 Baso % (Auto) 0.3 % (0.0-3.0) 10/29/18 06:30 Lymph # (Auto) 3.2 (1.2-3.4) 10/29/18 06:30 [place] # (Auto) 0.5 (0.1-0.6) 10/29/18 06:30 Eos # (Auto) 0.1 (0.0-0.7) 10/29/18 06:30 Baso # (Auto) 0.02 K/mm3 (0.0-2.0) 10/29/18 06:30 Absolute Neuts (auto) 2.08 (1.4-6.5) 10/29/18 06:30 PT 12.7 SECONDS (9.4-12.5) H 10/28/18 22:20 INR 1.14 10/28/18 22:20 APTT 36.1 Seconds (26.9-38.3) 10/28/18 22:20 Sodium 141 mmol/L (132-148) 10/29/18 06:30 Potassium 3.6 mmol/L (3.6-5.0) 10/29/18 06:30 Chloride 105 mmol/L (98-107) 10/29/18 06:30 Carbon Dioxide 26 mmol/L (21-33) 10/29/18 06:30 Anion Gap 13 (10-20) 10/29/18 06:30 BUN 19 mg/dL (7-21) 10/29/18 06:30 Creatinine 0.9 mg/dl (0.8-1.5) 10/29/18 06:30 Est GFR ( Amer) > 60 10/29/18 06:30 Est GFR (Non-Af Amer) > 60 10/29/18 06:30 Random Glucose 113 mg/dL (70-110) H 10/29/18 06:30 Hemoglobin A1c 6.1 % (4.2-6.5) 10/29/18 06:30 Calcium 9.6 mg/dL (8.4-10.5) 10/29/18 06:30 Phosphorus 3.5 mg/dL (2.5-4.5) 10/29/18 06:30 Magnesium 2.2 mg/dL (1.7-2.2) 10/29/18 06:30 Total Bilirubin 0.4 mg/dL (0.2-1.3) 10/29/18 06:30 AST 31 U/L (17-59) 10/29/18 06:30 ALT 26 U/L (7-56) 10/29/18 06:30 Alkaline Phosphatase 61 U/L (38-126) 10/29/18 06:30 Lactate Dehydrogenase 506 U/L (333-699) 10/28/18 21:44 Total Creatine Kinase 227 U/L (35-230) 10/28/18 21:44 Troponin I < 0.01 ng/mL 10/29/18 08:00 Total Protein 7.6 g/dL (5.8-8.3) 10/29/18 06:30 Albumin 4.3 g/dL (3.0-4.8) 10/29/18 06:30 Globulin 3.4 gm/dL 10/29/18 06:30 Albumin/Globulin Ratio 1.3 (1.1-1.8) 10/29/18 06:30 Triglycerides 177 mg/dL (35-160) H 10/29/18 06:30 Cholesterol 146 mg/dL (130-200) 10/29/18 06:30 LDL Cholesterol Direct 86 mg/dL (0-129) 10/29/18 06:30 HDL Cholesterol 28 mg/dL (29-60) L 10/29/18 06:30 TSH 3rd Generation 1.05 mIU/mL (0.46-4.68) 10/29/18 06:30 Attending/Attestation - Attestation I have personally seen and examined this patient.: Yes I have fully participated in the care of the patient.: Yes I have reviewed all pertinent clinical information, including history, physical exam and plan: Yes Notes (Text): Please note this DC summary is for 10/29/18 Patient seen and examined by me with resident at approximately 11:30 AM and prior to patient signing out AMA on 10/29/18. Case discussed with resident. Agree with above with following additions/corrections. Patient is a 53-year-old male with past medical history significant for hypertension, hyperlipidemia, GERD, and unspecified cardiac arrhythmia status post ablation that presented to the emergency room with episodes of periodic dizziness. Please see H&P for full details. Patient was admitted with dizziness, presyncope, hypertension, hyperlipidemia, and GERD. Cardiology was consulted. Neurology was consulted. Carotid Dopplers were done. 2-D echo was done. Physical therapy was consulted. Patient had no leukocytosis and was afebrile. Troponins were within normal limits. TSH was within normal limits. Triglycerides were 177, cholesterol 146, LDL 86, HDL 28. Head CT per radiology showed no acute intracranial abnormality. Results of testing were pending when patient decided to sign out AGAINST MEDICAL ADVICE. Patient requested to sign out against medical advice. This action is against my medical advice to the patient and the decision was made with informed refusal. The patient was told that further work up and treatment is necessary and a full explanation of my rationale was given. The risks for leaving were explained to the patient and include but are not limited to increased mortality and morbidity, , and worsening of known or unknown conditions. Patient was AAOx3 and was able to make this informed decision and understood the clinical situation and my explanation of the risks of leaving. The patient voluntarily accepted these risks and signed an AMA form. The patient was given the opportunity to ask questions and reconsider. The patient was encouraged to return to the emergency room at any time for further treatment. Physical exam: General: Awake and alert sitting up in bed in no acute distress. HEENT: Normocephalic, atraumatic. Extraocular muscles intact, pupils equal and reactive, no scleral icterus. Oropharynx is pink and moist. No pharyngeal erythema or exudate appreciated. Neck is supple. Cardiovascular: Regular rhythm. Normal S1 and S2. No murmurs, rubs, or gallops appreciated Pulmonary: Normal respiratory effort. No rhonchi, rales, or wheezing appre ciated. Gastrointestinal: Soft, nondistended. Nontender. Positive bowel sounds all 4 quadrants. No guarding. Musculoskeletal: Moves all extremities. No calf tenderness. No edema. Central nervous system: AAOx3. CN 2-12 grossly intact. 5/5 muscle strength all extremities. Dermatologic: Skin warm and dry. Please see chart for full details.
--- NOTE | 2018-10-29 17:24 | CARD ---
APPROVED REPORT Date of service: 10/28/2018 EKG Measurement Heart [id number] <Conclusion> Normal sinus rhythm Minimal voltage criteria for LVH, may be normal variant Borderline ECG
--- NOTE | 2018-10-29 18:12 | US ---
PROCEDURE: Bilateral carotid artery duplex ultrasound HISTORY: Carotid stenosis PHYSICIAN(S): Stanley Shay MD. TECHNIQUE: Duplex sonography and color-flow Doppler were used to evaluate the carotid bifurcations and limited segments of the vertebral arteries bilaterally. FINDINGS: There is mild smooth heterogeneous plaque noted at the carotid bifurcations bilaterally. The peak systolic velocity in the proximal right internal carotid artery is 85 cm/sec. This corresponds to a 20 to 39% proximal right ICA stenosis. Normal systolic velocities are noted in the proximal right external carotid artery. There is antegrade flow in the right vertebral artery. The peak systolic velocity in the proximal left internal carotid artery is 74 cm/sec. This corresponds to a 20 to 39% proximal left ICA stenosis. Normal systolic velocities are noted in the proximal left external carotid artery. There is antegrade flow in the left vertebral artery. IMPRESSION: 1. Bilateral 20-39% proximal ICA stenoses. 2. Antegrade flow in both vertebral arteries.
[2018-10-29] MEDS ORDERED: Pantoprazole 40 mg EC Tab PO SCH (22:00)
--- NOTE | 2018-10-30 07:23 | CARD ---
APPROVED REPORT Date of service: 10/29/2018 EXAM: Two-dimensional and M-mode echocardiogram with Doppler and color Doppler. INDICATION PRE-SYNCOPE 2D DIMENSIONS Left Atrium (2D)3.4 (1.6-4.0cm)IVSd1.3 (0.7-1.1cm) LVDd4.4 (3.9-5.9cm)PWd1.2 (0.7-1.1cm) LVDs3.2 (2.5-4.0cm)FS (%) 26.8 % LVEF (%)52.7 (>50%) M-Mode DIMENSIONS Aortic Root2.90 (2.2-3.7cm)Aortic Cusp Exc.1.60 (1.5-2.0cm) Aortic Valve AoV Peak Muzowocf116.0cm/Amilcar Peak GR.7mmHg Mitral Valve MV E Iycedwti26.9cm/sMV A Zoagfzin85.9cm/sE/A ratio0.9 TDI E/Lateral E'0.0E/Medial E'0.0 Tricuspid Valve TR Peak Pyfkxepv540uk/sRAP [id number] Peak Gr.16mmHg [id number] LEFT VENTRICLE The left ventricle is normal size. There is mild concentric left ventricular hypertrophy. The left ventricular function is normal. The left ventricular ejection fraction is within the normal range. There is normal LV segmental wall motion. RIGHT VENTRICLE The right ventricle is normal size. The right ventricular systolic function is normal. ATRIA The left atrium size is normal. The right atrium size is normal. The interatrial septum is intact with no evidence for an atrial septal defect. AORTIC VALVE The aortic valve is normal in structure. No aortic regurgitation is present. There is no aortic valvular stenosis. MITRAL VALVE The mitral valve is normal in structure. There is no mitral valve regurgitation noted. TRICUSPID VALVE The tricuspid valve is normal in structure. There is mild tricuspid regurgitation. PULMONIC VALVE The pulmonary valve is normal in structure. GREAT VESSELS The aortic root is normal in size. The IVC is normal in size and collapses >50% with inspiration. PERICARDIAL EFFUSION There is no pleural effusion. There is no pericardial effusion. <Conclusion> Normal chamber size. Normal LV systolic function. Mild concentric LVH. Mild TR.
== END 2018-10-29 16:50 | disposition left against medical advice (07) ==
LOC: ED 20:54 → ERH 23:42 → 2RSO 10-29 00:33
PROVIDERS: ADMIT Hospitalist; ATTEND Hospitalist
DX: R55 Syncope and collapse (principal); R42 Dizziness and giddiness; I10 Essential (primary) hypertension; I48.91 Unspecified atrial fibrillation; K21.9 Gastro-esophageal reflux disease without esophagitis; E78.5 Hyperlipidemia, unspecified; R73.03 Prediabetes; Z79.82 Long term (current) use of aspirin; Z87.01 Personal history of pneumonia (recurrent); Z82.49 Family history of ischemic heart disease and other diseases of the circulatory system
CPT/HCPCS: 36415; 70450; 71045; 80053; 80061; 82550; 83036; 83615; 83735; 84100; 84443; 84484; 85025; 85027; 85610; 85730; 93005; 93306; 93880; G0378